=== PATIENT | male | born 1975 | race Caucasian/White ===

== ENCOUNTER 2020-10-04 10:25 | Emergency (ER) | payer SELFPAY ==
--- NOTE | ~2020-10-04 | XR_ITS ---
EXAMINATION: XR abdomen/kub 1V EXAM DATE: 10/04/2020 13:40 INDICATION: Right-sided kidney stone. TECHNIQUE: Frontal projection(s) of the abdomen for interpretation. Correlation is made to CT scan yaquelin rajan same day. FINDINGS: The larger 3 x 6 mm stone identified, indicated on the examination. Difficult to definitiv marilynn identify the other distal ureteral stone from the pelvic calcifications. Moderate amount of right hemicolonic stool and gas. No small bowel dilation. There are mild bony degenerative changes. IMPRESSION: Right UVJ stone identified. Reviewed, dictated and finalized at location A. [employer] TE[employer] IMPRESSION: Right UVJ stone identified.
--- NOTE | ~2020-10-04 | CT_ITS ---
EXAMINATION: CT abdomen pelvis wo con EXAM DATE: 10/04/2020 13:09 INDICATION: Right flank pain. TECHNIQUE: Spiral CT of the abdomen and pelvis was performed without contrast. Axial, coronal and sag ittal images were reviewed. The dose-length product (DLP) for this examination was 1162.78 mGy-cm. The exposure was tailored according to patient size (auto mA exposure control), and iterative reconst ruction (ASIR) was used as additional dose reduction technique. There is no prior study for comparis on. FINDINGS: There is a right UVJ stone projecting into the lumen of the bladder measuring 3 x 6 mm. Pro ximal to this within the distal aspect of the right ureter at the UVJ is another 1 x 3 mm stone. Ther e is mild to moderate right-sided obstructive nephropathy. There is a right renal hyperdense exophyti c lesion measuring 1.4 cm, most likely a hemorrhagic cyst, but follow-up ultrasound should be obtaine d. The prostate is unremarkable. The left kidney and bladder are unremarkable. There is a left adrenal gland low-density lesion, adenoma measuring 2.4 cm. The liver, spleen, adrena l glands and pancreas are otherwise unremarkable. Possible low density poorly calcified cholelithias is. There is no retroperitoneal or pelvic lymphadenopathy. Minimal arteriosclerosis. The appendix is normal. The stomach and small bowel are unremarkable. There is expected amount of c olonic stool. No free intraperitoneal gas. The heart is normal in size. There are no pericardial or pleural effusions. The lung bases are unremarkable. Old left 9th rib fracture posteriorly. IMPRESSION: 1. Right UVJ 3 x 6 mm stone bulging into the bladder lumen, distal ureteral 1 x 3 mm stone. Mild to moderate obstructive nephropathy. consultants would appreciate KUB as baseline for follow-up. 2. Indeterminate exophytic right renal 1.4 cm lesion probably hemorrhagic cyst but follow-up [facility]. 3. Left adrenal adenoma. Reviewed, dictated and finalized at location A. E BUYER IMPRESSION: 1. Right UVJ 3 x 6 mm stone bulging into the bladder lumen, distal ureteral 1 x 3 mm stone. Mild to moderate obstructive nephropathy. consultants would ap preciate KUB as baseline for follow-up. 2. Indeterminate exophytic right renal 1.4 cm lesion probably hemorrhagic cyst but follow-up nonemergent ultrasound. 3. Left adrenal adenoma.
[2020-10-04 11:28] VITALS: BP 150/70; PULSE 92; RESP 16; TEMP 35.9; O2SAT 97
[2020-10-04 11:41] LABS: Basophils Absolute Auto 0.1 K/mm3 (0.0-0.1); Basophils Percent Auto 0.8 % (0.2-1.2); Eosinophils Absolute Auto 0.3 K/mm3 (0-0.3); Eosinophils Percent Auto 1.8 % (0-4.4); Hematocrit 49.8 % (42.0-52.0); Hemoglobin 16.8 g/dL (14.0-18.0); Immature Granulocyte Percent A 0.7 % (0-0.5); Lymphocytes Absolute Auto 1.77 K/mm3 (0.9-3.2); Lymphocytes Percent Auto 12.3 % (18.3-44.2); Mean Corpuscular HGB Conc 33.7 g/dl (32-36); Mean Corpuscular Hemoglobin 31.4 pg (26-34); Mean Corpuscular Volume 93.1 fl (80-100); Mean Platelet Volume 9.3 fl (7.4-10.4); Monocytes Absolute Auto 1.4 K/mm3 (0.1-0.6); Monocytes Percent Auto 9.8 % (2.6-8.5); Neutrophils Absolute Auto 10.7 K/mm3 (1.3-6.7); Neutrophils Percent Auto 74.6 % (45.5-73.1); Platelet Count Result 355 k/mm3 (150-375); Red Blood Count 5.35 M/mm3 (4.6-6.20); Red Cell Distribution Width 13.8 % (11.5-14.5); White Blood Count 14.3 K/mm3 (4.5-10.0)
[2020-10-04 11:53] LABS: Anion Gap 6 mmol/L (8-16); Blood Urea Nitrogen 19 mg/dL (9-20); Calcium 9.4 mg/dL (8.4-10.2); Carbon Dioxide 24 mmol/L (22-30); Chloride 109 mmol/L (98-107); Estimated CRCL calculation 119 ml/min; Estimated Glomerular Filt Rate > 60; Glucose 109 mg/dL (75-110); Potassium 4.1 mmol/L (3.4-5.0); Sodium 139 mmol/L (137-145)
[2020-10-04 12:16] LABS: Add Urine Microscopic? YES; Appearance Urine Clear (Clear); Bacteria Urine Trace /hpf; Bilirubin Urine Negative (Negative); Blood Urine 2+ (Negative); Color Urine Yellow (Yellow); Glucose Urine UA Negative (Negative); Ketones Urine Negative (Negative); Leukocyte Esterase Ur Negative LEU/UL (Negative); Mucus Urine Rare /lpf; Nitrate Urine Negative (Negative); Protein Urine 1+ mg/dL (Negative); RBC Urine 51-75 /hpf (0-2); Specific Grav Ur 1.026 (1.001-1.035); Squamous Epithelial Cell Urine Rare /hpf (Few); Urobilinogen Urine Negative mg/dL (<2.0)
--- NOTE | 2020-10-04 13:20 | ED.GENADULT ---
HPI - General Adult General Chief complaint: Abdominal Pain Stated complaint: possible kidney stone Time Seen by Provider: 10/04/20 12:28 Source: patient History of Present Illness HPI narrative: Patient is a 45 y/o male complaining of right flank pain starting last night. He describes his pain as being kicked and rates it as 8-10/10. He states that he took hot shower and it did not help with his pain. There is no pain radiation. He has some nausea, but no vomiting. He also has some dysuria and intermittent hematuria. He states that he had CT scan done in 07/25 in [place], which showed kidney stone. He states that he is in this area temporarily for his job. Related Data Allergies Allergy/AdvReac Type Severity Reaction Status Date / Time No Known Allergies Allergy Verified 10/04/20 11:33 Review of Systems Constitutional: Constitutional: Denies chills, Denies fever(s), Denies headache(s) and Denies weakness Eyes: Eyes: Denies blurry vision ENT: Denies headache(s) and Denies neck pain Cardiovascular: Cardiovascular: Denies chest pain and Denies dyspnea Respiratory: Respiratory: Denies cough and Denies dyspnea Gastrointestinal: Gastrointestinal: Denies abdominal pain, Denies diarrhea, Denies nausea and Denies vomiting Genitourinary: Genitourinary: Reports hematuria, Reports dysuria and Reports flank pain Musculoskeletal: Musculoskeletal: Denies back pain and Denies neck pain Neurologic: Denies headache(s) and Denies weakness [facility] Past Medical History Medical History (Updated 10/04/20 @ 14:36 by Meena Montesinos MD) Kidney stone Social History Social History Gender identity (if verbalized by the patient): Male Exam Const: General: no acute distress and well developed Orientation/consciousness: oriented to person, oriented to place, oriented to time and patient oriented x3 HENMT: Head: normocephalic Ears: external ears normal General nose exam: Normal external nose present Eyes: General: appearance normal, both eyes and all related structures Conjunctivae: conjunctivae normal Neck: Neck: normal visual inspection and full ROM Chest: Chest palpation & inspection: normal inspection of the chest and no tenderness Resp: Effort & Inspection: normal respiratory effort Auscultation: clear to auscultation bilaterally Cardio: Rate: regular rate Rhythm: regular rhythm GI: GI Palp: No abdominal tenderness and Yes Soft to palpation Skin: General skin exam: normal color and turgor normal Neuro: General: oriented to person, oriented to place, oriented to time and patient oriented x3 Cognition (Neuro): normal cognition Extrem: General: normal to inspection, full ROM and no pedal edema Psych: Appearance: grossly normal Mental Status: mental status grossly normal Affect: normal affect Course Reevaluation(s) Reevaluation #1: Rechecked. Patient feels better and rates his pain as 4/10. Date: 10/04/20 Time: 14:07 Consultations Consultation #1: Discussed with Dr. Kimbrough, who offered patient surgery today for possible stone extraction. However, patient declined surgery, stating that he felt better and wanted to wait until he gets back to [place]. Date: 10/04/20 Time: 14:22 Vital Signs Vital signs: Vital Signs Temperature 35.9 C L 10/04/20 11:28 Pulse Rate 92 10/04/20 11:28 Respiratory Rate 16 10/04/20 11:28 Blood Pressure 150/70 H 10/04/20 11:28 Pulse Oximetry 97 10/04/20 11:28 Temperature 35.9 C L 10/04/20 11:28 Pulse Rate 85 10/04/20 15:00 Respiratory Rate 16 10/04/20 15:00 Blood Pressure 148/88 H 10/04/20 15:00 Pulse Oximetry 97 10/04/20 15:00 Medical Decision Making Vital Signs Vital Signs: Vital Signs Temperature 35.9 C L 10/04/20 11:28 Pulse Rate 92 10/04/20 11:28 Respiratory Rate 16 10/04/20 11:28 Blood Pressure 150/70 H 10/04/20 11:28 Pulse Oximetry 97 10/04/20 11:28 Temperature 35.9
[2020-10-04] MEDS: SODIUM CHLORIDE 0.9% IV 1,000 ML 999 ML IV CONT (13:33)
[2020-10-04] MEDS: KETOROLAC 30 MG/ML VIAL (*BKC) IV PUSH (13:33)
[2020-10-04 15:00] VITALS: BP 148/88; PULSE 85; RESP 16; O2SAT 97
== END 2020-10-04 15:00 | disposition home or self-care (01) ==
PROVIDERS: General Practice; Emergency Provider Emergency Medicine
DX: N13.8 Other obstructive and reflux uropathy (principal); N20.1 Calculus of ureter; D35.02 Benign neoplasm of left adrenal gland; N28.9 Disorder of kidney and ureter, unspecified; Z87.442 Personal history of urinary calculi
CPT/HCPCS: 36415; 74018; 74176; 80048; 81001; 85025; 96374; 99284; J1885; J7030